=== PATIENT | female | born 1965 | race Caucasian/White ===

== ENCOUNTER 2023-03-20 17:56 | Inpatient (IN) | payer OTHER ==
[2023-03-20] MEDS ORDERED: LOPERAMIDE HCL 2 MG CAPSULE PO PRN (21:28)
[2023-03-20] MEDS ORDERED: IBUPROFEN 600 MG TABLET (FP) PO PRN (21:28)
[2023-03-20] MEDS ORDERED: BENZOCAINE/MENTHOL (CHLORASEPTIC ) LOZENGE MM PRN (21:28)
[2023-03-20] MEDS ORDERED: BISMUTH SUBSALICYLATE 524 MG/30 ML PO PRN (21:28)
[2023-03-20] MEDS ORDERED: MAGNESIUM HYDROX 2400MG/30ML ORAL SUSPENSION 30 ML CUP PO PRN (21:28)
[2023-03-20] MEDS ORDERED: guaiFENesin 600 MG TABLET.ER (FP) PO PRN (21:28)
[2023-03-20] MEDS ORDERED: DICYCLOMINE HCL 10 MG CAPSULE PO PRN (21:28)
[2023-03-20] MEDS ORDERED: BENZONATATE 200 MG CAPSULE PO PRN (21:28)
[2023-03-20] MEDS ORDERED: ACETAMINOPHEN 325 MG TABLET (FP) PO PRN (21:28)
[2023-03-20] MEDS ORDERED: IBUPROFEN 400 MG TABLET (FP) PO PRN (21:28)
[2023-03-20] MEDS ORDERED: POLYETHYLENE GLYCOL (HEALTHYLAX) 3350 17 GM PACKET PO PRN (21:28)
[2023-03-20] MEDS ORDERED: MAG HYDROX/AL HYDROX/SIMETH 30 ML UNIT-DOSE CUP PO PRN (21:28)
[2023-03-20] MEDS ORDERED: P-EPHED 60MG/TRIPROLIDI 2.5MG TABLET PO PRN (21:28)
[2023-03-20] MEDS ORDERED: ONDANSETRON *ODT* 4 MG TABLET SL PRN (21:28)
[2023-03-20] MEDS ORDERED: chlordiazePOXIDE HCL 25 MG CAPSULE PO ONE (21:31)
[2023-03-20] MEDS ORDERED: LORazepam 2 MG/ML SDV VIAL IM ONE (21:45)
[2023-03-20] MEDS ORDERED: chlordiazePOXIDE HCL 25 MG CAPSULE ONE (21:49)
[2023-03-20] MEDS ORDERED: traZODone HCL 50 MG TABLET (FP) PO ONE (23:00)
[2023-03-20] MEDS: hydrOXYzine PAMOATE 25 MG CAPSULE (FP) PO PRN (23:51)
[2023-03-20] MEDS: levETIRAcetam 500 MG TABLET (FP) PO SCH (23:51)
[2023-03-20] MEDS: METHOCARBAMOL 500 MG TABLET PO PRN (23:51)
[2023-03-20] MEDS: THIAMINE HCL 100 MG TABLET (FP) PO SCH (23:54)
[2023-03-20] MEDS: MELATONIN 5 MG TABLETS PO SCH (23:58)
[2023-03-21] MEDS: chlordiazePOXIDE HCL 25 MG CAPSULE PO PRN ×2 (02:09→15:40)
[2023-03-21] MEDS: chlordiazePOXIDE HCL 25 MG CAPSULE PO SCH ×4 (05:21→22:14)
[2023-03-21 10:17] LABS: HEMOGLOBIN 12.2 GM/dL (10.7-15.3); MCHC 32.9 g/dl (32.0-36.0); MEAN CELL VOLUME 100.3 fl (80-96); MEAN PLT VOLUME 8.1 fl (7.5-11.1); PLATELET COUNT 162 10^3/uL (134-434); RBC 3.69 M/mm3 (3.60-5.2); RDW 14.6 % (11.6-15.6); WHITE BLOOD COUNT 3.8 K/mm3 (4.0-10.0)
[2023-03-21 10:34] LABS: ALBUMIN 3.6 g/dl (3.4-5.0); BLOOD UREA NITROGEN 4.4 mg/dL (7-18); CALCIUM 8.9 mg/dL (8.5-10.1)
[2023-03-21 10:37] LABS: CREATININE 0.6 mg/dL (0.55-1.3)
[2023-03-21] MEDS: levETIRAcetam 500 MG TABLET (FP) PO SCH ×2 (10:37→22:14)
[2023-03-21] MEDS: PRENATAL VITAMINS W/ FOLIC ACID TABLET (FP) PO SCH (10:37)
[2023-03-21 10:38] LABS: BILIRUBIN,TOTAL 0.6 mg/dL (0.2-1)
[2023-03-21 10:39] LABS: TOT PROT 6.3 g/dl (6.4-8.2)
[2023-03-21] MEDS: hydrOXYzine PAMOATE 25 MG CAPSULE (FP) PO PRN (18:47)
[2023-03-21] MEDS: THIAMINE HCL 100 MG TABLET (FP) PO SCH (22:14)
[2023-03-21] MEDS: MELATONIN 5 MG TABLETS PO SCH (22:15)
[2023-03-21] MEDS: METHOCARBAMOL 500 MG TABLET PO PRN (22:17)
[2023-03-22] MEDS: chlordiazePOXIDE HCL 25 MG CAPSULE PO SCH ×2 (04:23→10:12)
[2023-03-22] MEDS: hydrOXYzine PAMOATE 25 MG CAPSULE (FP) PO PRN ×2 (04:23→22:13)
[2023-03-22] MEDS: PRENATAL VITAMINS W/ FOLIC ACID TABLET (FP) PO SCH (10:09)
[2023-03-22] MEDS: METHOCARBAMOL 500 MG TABLET PO PRN (10:10)
[2023-03-22] MEDS: levETIRAcetam 500 MG TABLET (FP) PO SCH ×2 (10:10→22:13)
[2023-03-22] MEDS ORDERED: POTASSIUM CHLORIDE ORAL LIQUID 20 MEQ/15 ML PO ONE ×3 (12:00→17:45)
[2023-03-22] MEDS: LORazepam 2 MG TABLET PO SCH ×2 (17:15→22:13)
[2023-03-22] MEDS: ARTIFICIAL TEARS (POLYVINYL ALCOHOL) OPTH DROPS OU SCH (22:12)
[2023-03-22] MEDS: MELATONIN 5 MG TABLETS PO SCH (22:13)
[2023-03-22] MEDS: THIAMINE HCL 100 MG TABLET (FP) PO SCH (22:13)
[2023-03-23] MEDS ORDERED: chlordiazePOXIDE HCL 10 MG CAPSULE PO PRN
[2023-03-23] MEDS: LORazepam 1 MG TABLET PO PRN ×3 (00:37→13:29)
[2023-03-23] MEDS: METHOCARBAMOL 500 MG TABLET PO PRN ×2 (02:10→22:11)
[2023-03-23] MEDS ORDERED: chlordiazePOXIDE HCL 10 MG CAPSULE PO SCH (05:00)
[2023-03-23] MEDS: LORazepam 1 MG TABLET PO SCH ×4 (05:58→22:11)
[2023-03-23] MEDS: PRENATAL VITAMINS W/ FOLIC ACID TABLET (FP) PO SCH (10:02)
[2023-03-23] MEDS: levETIRAcetam 500 MG TABLET (FP) PO SCH ×2 (10:02→22:11)
[2023-03-23] MEDS: hydrOXYzine PAMOATE 25 MG CAPSULE (FP) PO PRN (10:04)
[2023-03-23] MEDS: ARTIFICIAL TEARS (POLYVINYL ALCOHOL) OPTH DROPS OU SCH ×2 (10:05→21:01)
[2023-03-23 11:44] LABS: POTASSIUM 4.4 mmol/L (3.5-5.1)
[2023-03-23 20:33] VITALS: RESP 18
[2023-03-23] MEDS ORDERED: traZODone HCL 50 MG TABLET (FP) PO SCH (22:00)
[2023-03-23] MEDS: THIAMINE HCL 100 MG TABLET (FP) PO SCH (22:11)
[2023-03-24] MEDS ORDERED: LORazepam 0.5 MG TABLET PO PRN
[2023-03-24] MEDS: hydrOXYzine PAMOATE 25 MG CAPSULE (FP) PO PRN (00:32)
[2023-03-24] MEDS ORDERED: LORazepam 0.5 MG TABLET PO SCH (05:00)
[2023-03-24] MEDS ORDERED: chlordiazePOXIDE HCL 10 MG CAPSULE PO SCH (05:00)
[2023-03-24 09:03] VITALS: BP 130/84; PULSE 65; TEMP 97.3
[2023-03-25] MEDS ORDERED: chlordiazePOXIDE HCL 10 MG CAPSULE PO ONE (05:00)
[2023-03-25] MEDS ORDERED: LORazepam 0.5 MG TABLET PO ONE (05:00)
== END 2023-03-24 09:37 | disposition home or self-care (01) | DRG 775 ==
LOC: YASAS 17:56 → Y6N 22:47
PROVIDERS: ADMIT Allergy & Immunology; ATTEND Surgery
PROC: HZ2ZZZZ Detoxification Services for Substance Abuse Treatment (ICD-10-PCS; principal; 2023-03-20)
DX: F10.230 Alcohol dependence with withdrawal, uncomplicated (principal); F13.20 Sedative, hypnotic or anxiolytic dependence, uncomplicated; F19.24 Other psychoactive substance dependence with psychoactive substance-induced mood disorder; F32.A Depression, unspecified; F41.9 Anxiety disorder, unspecified; E87.6 Hypokalemia; R56.9 Unspecified convulsions
CPT/HCPCS: 36415; 80053; 81025; 84132; 84450; 85027; 86780; 87635; 87811